=== PATIENT | female | born 1945 | race Caucasian/White ===

== ENCOUNTER → 2018-01-13 | Outpatient (CLI) | payer MEDICARE ==
--- NOTE | 2018-01-13 18:44 | Diagnostic Imaging Report ---
INDICATION: Left breast calcifications. Patient presents for additional views. Correlation is made with screening study from 12/30/2017. Unilateral left 2-D and 3-D diagnostic mammography was performed with CAD including exaggerated CC, 90-degree lateral and magnification ML views. The current study was also evaluated with a Computer Aided Detection (CAD) system. FINDINGS: There are multiple punctate calcifications in the far posterior left breast only seen on the MLO view. These cannot be seen with certainty on the exaggerated CC view. No associated soft tissue mass is seen. No definite pleomorphism or branching is detected. IMPRESSION: Likely benign calcification in the far posterior left breast on the MLO and ML views. Even so, followup left mammogram in 6 months is recommended to confirm stability. ACR BI-RADS Category 3: Probably benign findings. Result letter will be mailed to the patient. Note: At least 10% of breast cancer is not imaged by mammography. Dictated by: Dictated on workstation # [id number]
== END ==
LOC: RAD 13:17
PROVIDERS: ATTEND Family Medicine
DX: R92.1 Mammographic calcification found on diagnostic imaging of breast (principal)